=== PATIENT | female | born 1950 | race Asian ===

== ENCOUNTER 2017-10-16 07:54 | Day surgery (SDC) | payer OTHER ==
[2017-10-11 16:49] VITALS: BMI 23.8
[2017-10-16] MEDS ORDERED: PROPOFOL 20 ML ONE ×2 (07:59)
[2017-10-16] MEDS ORDERED: LIDOCAINE HCL/PF 2% SDV 5ML VIAL ONE (08:00)
[2017-10-16 09:52] VITALS: TEMP 97.6
[2017-10-16 10:10] VITALS: BP 113/71; PULSE 62
== END 2017-10-16 10:12 | disposition home or self-care (01) ==
LOC: FASU-ENDO 07:54
PROVIDERS: ATTEND Internal Medicine Gastroenterology
PROC: 0DJD8ZZ Inspection of Lower Intestinal Tract, Via Natural or Artificial Opening Endoscopic (ICD-10-PCS; principal; 2017-10-16 09:12)
DX: Z12.11 Encounter for screening for malignant neoplasm of colon (principal); K64.8 Other hemorrhoids